=== PATIENT | female | born 1995 ===

== ENCOUNTER 2018-08-01 18:21 | Emergency (ER) | payer OTHER ==
[2018-08-01] MEDS: IBUPROFEN 600 MG TAB PO (20:34)
[2018-08-01] MEDS: ACETAMINOPHEN 500 MG TAB PO (20:34)
== END 2018-08-01 21:04 | disposition home or self-care (01) ==
LOC: FTE 18:21
DX: J20.9 Acute bronchitis, unspecified (principal); H66.91 Otitis media, unspecified, right ear
CPT/HCPCS: 99284; Z7610